=== PATIENT | male | born 1985 ===

== ENCOUNTER 2021-10-15 03:10 | Emergency (ER) | payer BC ==
[2021-10-15] MEDS ORDERED: TETRACAINE HCL 0.5% 4ML OPTH ONE ×2 (03:30→03:32)
[2021-10-15] MEDS ORDERED: FLUORESCEIN SODIUM 1 MG/WRAP ONE ×2 (03:31→03:32)
--- NOTE | 2021-10-15 04:14 | EDPHYS ---
Physician Documentation [facility] Name: Gio Cole Age: 36 yrs Sex: Male : 1985 Arrival Date: 10/15/2021 Time: 03:17 Bed 20 Private MD: ED Physician Arun Ventura HPI: 10/15 04:07 This 36 yrs old Male presents to ER via [employer] with complaints of Eye Problem. rn 04:07 The patient is experiencing blurred vision, The patient sustained None. to the right rn eye, caused by an unknown mechanism. Onset: The symptoms/episode began/occurred yesterday. Duration: the symptoms are continuous. Aggravated by nothing. Alleviated by nothing. Associated signs and symptoms: Pertinent negatives: fever, headache. Severity of symptoms: At their worst the symptoms were mild in the emergency department the symptoms are unchanged. The patient has not experienced similar symptoms in the past. The patient has not recently seen a physician. Pt reports retinal detachment and lens surgery 3 months ago at [facility], had silicone injected into vitreous and was supposed to go to appointment today for reevaluation and possibly to get "silicone out" per patient. No recent injury/trauma/splash. Reports started seeing slightly more blurred yesterday, and was notified that he missed the "chain bus", and that he could no longer make appointment today. Told medical that "eye was leaking", and that prompted them to send him here. . Historical: - Allergies: 03:20 Bactrim; lg3 - Home Meds: 03:20 antiacid [Active]; lg3 - PMHx: 03:20 Cataract; detached retna; lg3 - PSHx: 03:20 right eye X2; lg3 - Immunization history:: Adult Immunizations up to date, Client reports receiving the 2nd dose of the Covid vaccine. - Social history:: Smoking status: Patient denies any tobacco usage or history of. Patient/guardian denies using alcohol, street drugs. - Family history:: not pertinent. - Hospitalizations: : No recent hospitalization is reported. ROS: 04:07 Constitutional: Negative for fever, chills, and weight loss, Eyes: Negative for injury, rn pain, redness, and discharge. Exam: 04:07 Constitutional: This is a well developed, well nourished patient who is awake, alert, rn and in no acute distress. Head/Face: Normocephalic, atraumatic. Eyes: Pupils equal round and reactive to light, extra-ocular motions intact. Lids and lashes normal. Conjunctiva and sclera are non-icteric and not injected. Cornea within normal limits. Periorbital areas with no swelling, redness, or edema. + artifical lens in place, no blood or fluid/pus in anterior chamber, neg minerva's sign, no fluorescein uptake on exam. No foreign body. No hyphema. Vital Signs: 03:18 BP 119 / 82; Pulse 84; Resp 16 S; Temp 98.1(O); Pulse Ox 96% on R/A; Weight 108.86 kg lg3 (R); Height 5 ft. 11 in. (180.34 cm) (R); Pain 10/10; 03:18 Body Mass Index 33.47 (108.86 kg, 180.34 cm) lg3 MDM: 03:18 Patient medically screened. rn 04:07 Differential diagnosis: complication of previous surgery, vitreous hemorrhage, vitreous rn leak. Data reviewed: vital signs, nurses notes, and as a result, I will discharge patient. Counseling: I had a detailed discussion with the patient and/or guardian regarding: the historical points, exam findings, and any diagnostic results supporting the discharge/admit diagnosis, the need for outpatient follow up, to return to the emergency department if symptoms worsen or persist or if there are any questions or concerns that arise at home. ED course: No acute findings on exam, patient reports minimal blurred vision, no acute trauma. Confirmed with [facility] that he has appt, they confirm, has to be there by 0800 today, and they have cleared special transport with their lieutenant. . Administered Medications: 03:54 Drug: Tetracaine Drops 0.5 % 1 drops Route: Ophthalmic; Site: right eye; lg3 03:54 Follow up: Response: No adverse reaction lg3 03:54 Drug: Fluorescein Strip 1 strip Route: Ophthalmic; Site: right eye; lg3 03:54 Follow up: Response: No adverse reaction lg3 Disposition Summary: 10/15/21 04:13 Discharge Ordered Location: Home rn Problem: an ongoing problem rn Symptoms: are unchanged rn Condition: Stable rn Diagnosis - Blurred vision rn Followup: rn - With: Private Physician - When: Upon discharge from the Emergency Department - Reason: Further diagnostic work-up, Recheck today's complaints, Continuance of care, Re-evaluation by your physician Discharge Instructions: - Discharge Summary Sheet rn - Blurred Vision, Adult rn Forms: - Medication Reconciliation Form rn - Thank You Letter rn - Antibiotic [employer] learning support teacher - Prescription Opioid Use rn Signatures: Arun Ventura MD MD rn Gibson, Lacie, RN RN lg3 Corrections: (The following items were deleted from the chart) 03:22 03:20 PMHx: antacid; lg3 lg3 04:10 04:07 Pt reports retinal detachment and lens surgery 3 months ago at [facility], had silicone rn injected into vitreous and was supposed to go to appointment today for reevaluation and possibly to get "silicone out" per patient. No recent injury/trauma/splash. Reports started seeing slightly more blurred yesterday, and was notified that he missed the "chain bus", and that he could no longer make appointment today. . rn
--- NOTE | 2021-10-15 04:14 | ER ---
Nurse's Notes [facility] Name: Gio Cole Age: 36 yrs Sex: Male : 1985 Arrival Date: 10/15/2021 Time: 03:17 Bed 20 Private MD: Diagnosis: Blurred vision Presentation: 10/15 03:18 Chief complaint: Patient states: i had eye surgery at the end of june. i had a retina lg3 detachment repair and cataract removal. the silicone that they put in my eye is leaking out now. Coronavirus screen: Client denies travel out of the [place] in the last 14 days. At this time, the client does not indicate any symptoms associated with coronavirus-19. Ebola Screen: No symptoms or risks identified at this time. Initial Sepsis Screen: Does the patient meet any 2 criteria? No. Patient's initial sepsis screen is negative. Does the patient have a suspected source of infection? No. Patient's initial sepsis screen is negative. Risk Assessment: Do you want to hurt yourself or someone else? Patient reports no desire to harm self or others. Onset of symptoms was September 14, 2021. 03:18 Method Of Arrival: [employer]: [place] [employer] lg3 03:18 Acuity: LEENA 4 lg3 Triage Assessment: 03:20 General: Appears in no apparent distress. comfortable, Behavior is calm, cooperative. lg3 Pain: Complains of pain in right eye. EENT: Eyes are tearing on iris of right eye. Neuro: No deficits noted. Level of Consciousness is awake, alert, obeys commands, Oriented to person, place, time, situation. Cardiovascular: No deficits noted. Denies chest pain, shortness of breath. Respiratory: No deficits noted. Airway is patent Trachea midline Respiratory effort is even, unlabored, Respiratory pattern is regular, symmetrical, Breath sounds are clear bilaterally. GI: No deficits noted. No signs and/or symptoms were reported involving the gastrointestinal system. Abdomen is round non-distended. : No deficits noted. No signs and/or symptoms were reported regarding the genitourinary system. Derm: No deficits noted. No signs and/or symptoms reported regarding the dermatologic system. Skin is intact, is healthy with good turgor, Skin is dry, Skin temperature is warm. Musculoskeletal: No deficits noted. No signs and/or symptoms reported regarding the musculoskeletal system. Circulation, motion, and sensation intact. Range of motion: intact in all extremities. Historical: - Allergies: 03:20 Bactrim; lg3 - Home Meds: 03:20 antiacid [Active]; lg3 - PMHx: 03:20 Cataract; detached retna; lg3 - PSHx: 03:20 right eye X2; lg3 - Immunization history:: Adult Immunizations up to date, Client reports receiving the 2nd dose of the Covid vaccine. - Social history:: Smoking status: Patient denies any tobacco usage or history of. Patient/guardian denies using alcohol, street drugs. - Family history:: not pertinent. - Hospitalizations: : No recent hospitalization is reported. Screenin:23 Abuse screen: Denies threats or abuse. Denies injuries from another. Nutritional lg3 screening: No deficits noted. Tuberculosis screening: No symptoms or risk factors identified. Fall Risk None identified. Assessment: 03:23 General: see triage assessment . lg3 04:21 Reassessment: Patient appears in no apparent distress at this time. No changes from lg3 previously documented assessment. Patient and/or family updated on plan of care and expected duration. Pain level reassessed. Patient is alert, oriented x 3, equal unlabored respirations, skin warm/dry/pink. Vital Signs: 03:18 BP 119 / 82; Pulse 84; Resp 16 S; Temp 98.1(O); Pulse Ox 96% on R/A; Weight 108.86 kg lg3 (R); Height 5 ft. 11 in. (180.34 cm) (R); Pain 10/10; 03:18 Body Mass Index 33.47 (108.86 kg, 180.34 cm) lg3 ED Course: 03:17 Patient arrived in ED. mw2 03:18 Arun Ventura MD is Attending Physician. rn 03:20 Triage completed. lg3 03:20 Arm band placed on left wrist. lg3 03:23 Patient has correct armband on for positive identification. Bed in low position. Call 3 light in reach. Security at bedside. Client placed on continuous cardiac and pulse oximetry monitoring. NIBP monitoring applied. 04:00 Contacted [facility] spoke to Renetta to see if the patient had a Doctors appointment mw2 in [place] today. She stated "he does he is supposed to go on the chain bus but he missed it. If you guys decide to discharge him we can try to get him a van to take him to the appointment this morning. I do need to talk to the daphnet first before we make the final call.". 04:07 Renetta from [facility] called back she stated " I talked with Wafer he mw2 said "when he gets discharged have the guards call me and they will take him straight from the ER to [place]." so have the guards call when he gets discharged.". 04:21 Assist provider with eye exam of right eye. using fluorescein stain, Performed by Arun Ventura MD Patient tolerated well. Patient did not have IV access during this emergency room visit. Administered Medications: 03:54 Drug: Tetracaine Drops 0.5 % 1 drops Route: Ophthalmic; Site: right eye; lg3 03:54 Follow up: Response: No adverse reaction lg3 03:54 Drug: Fluorescein Strip 1 strip Route: Ophthalmic; Site: right eye; lg3 03:54 Follow up: Response: No adverse reaction lg3 Medication: 04:22 VIS not applicable for this client. lg3 Outcome: 04:13 Discharge ordered by . rn 04:22 Discharged to [employer] Enforcement lg3 04:22 Condition: stable 04:22 Discharge instructions given to patient, Instructed on discharge instructions, follow up and referral plans. Demonstrated understanding of instructions, follow-up care. 04:22 Patient left the ED. lg3 Signatures: Arun Ventura MD MD rn [place], MyKena 2 Christiane Mccarthy RN RN lg3 Corrections: (The following items were deleted from the chart) 03:22 03:20 PMHx: antacid; lg3 lg3
[2021-10-15 04:54] VITALS: BP 119/82; TEMP 98.1; O2SAT 96
== END 2021-10-15 04:22 | disposition home or self-care (01) ==
LOC: ER 03:10
DX: H53.8 Other visual disturbances (principal); Z88.1 Allergy status to other antibiotic agents